=== PATIENT | male | born 1940 ===

== ENCOUNTER 2019-07-29 07:19 | Outpatient (CLI) | payer OTHER | END 2019-07-29 07:21 | disposition home or self-care (01) | LOC: RX STUDY 07:19 | DX: E11.9 Type 2 diabetes mellitus without complications (principal); R12 Heartburn; E78.49 Other hyperlipidemia; R63.0 Anorexia; R63.4 Abnormal weight loss; R79.89 Other specified abnormal findings of blood chemistry; K76.0 Fatty (change of) liver, not elsewhere classified ==